=== PATIENT | female | born 1965 | race Caucasian/White ===

== ENCOUNTER 2018-08-24 16:18 | Outpatient (REF) | payer BC, SELFPAY ==
--- NOTE | 2018-08-24 15:30 | PAPFT_PTH ---
PATIENT: Gertrudis Chang LOC: [facility] U#:[id number] AGE/SX: 52/F ROOM: RE08/24/[address]: BRITTNEY Jensen : 1965 BED: DIS: 08/24/2018 SPEC #: [id number] RECD: 08/24/18 17:50 STATUS: KEHINDE REQ #: [id number] ALEX: 08/24/18 15:[address]: Eva Caballero DEPT: [facility] Cytology RECD BY: Ade Dave ENTERED: 08/24/18 17:51 SP TYPE: PAPFT OTHR DR: Edwina Cheney Tissues: 1 - CX/ENDOCX FOR PAP SMEARS Procedures: PAP THIN PREP/[facility] Screening Comments: [id number]
== END 2018-08-24 16:38 ==
LOC: LBN 16:18
PROVIDERS: Visit Provider Nurse Practitioner Family
DX: Z12.4 Encounter for screening for malignant neoplasm of cervix (principal)
CPT/HCPCS: 88142

== ENCOUNTER 2019-09-23 15:21 | Outpatient (REF) | payer BC, SELFPAY ==
--- NOTE | 2019-09-23 14:00 | PAPFT_PTH ---
PATIENT: Gertrudis Chang LOC: [facility] U#:[id number] AGE/SX: 54/F ROOM: RE09/23/[address]: BRITTNEY Jensen : 1965 BED: DIS: 09/23/2019 SPEC #: [id number] RECD: 09/26/19 12:37 STATUS: KEHINDE RERaghu #: [id number] ALEX: 09/23/19 14:[address]: Eva Caballero DEPT: [facility] Cytology RECD BY: Ade Dave ENTERED: 09/26/19 12:38 SP TYPE: PAPFT OTHR DR: Edwina Cheney Tissues: 1 - CX/ENDOCX FOR PAP SMEARS Procedures: PAP THIN PREP/[facility] Screening HPV DNA PROBE Comments: [id number]
== END 2019-09-23 15:41 ==
LOC: LBN 15:21
PROVIDERS: Visit Provider Nurse Practitioner Family
DX: Z12.4 Encounter for screening for malignant neoplasm of cervix (principal); Z11.51 Encounter for screening for human papillomavirus (HPV)
CPT/HCPCS: 88142; 87624

== ENCOUNTER 2019-10-12 02:08 | Outpatient (CLI) | payer BC, SELFPAY ==
--- NOTE | 2019-10-12 12:30 | DI.MAMMO_ITS ---
EXAM: MG MAMMO SCREENING CLINICAL HISTORY: screening TECHNIQUE: Mammograms were interpreted according to the usual protocol including computer analysis w [employer] CAD system, tomosynthesis and C-view imaging. COMPARISON: FINDINGS: The breasts are of moderate density with fairly symmetrical distribution of fibroglandular tissue. N o dominant mass or clumped microcalcification is identified in either breast. Current examination is compared with previous examinations including June 2017 and there has been no gross interval mahsa nge in appearance incomparison with the previous studies. IMPRESSION: No specific evidence of malignancy at this time. Routine screening examinations are suggested at yea rly intervals in this age group according to the ACS ACR guidelines. BI-RADS Cat 1 - Negative: Breast Density - Category B - Scattered areas of fibroglandular density:
== END 2019-10-12 02:28 ==
PROVIDERS: Visit Provider Nurse Practitioner Family
DX: Z12.31 Encounter for screening mammogram for malignant neoplasm of breast (principal)
CPT/HCPCS: 77063; 77067

== ENCOUNTER 2020-09-24 11:29 | Outpatient (REF) | payer BC, SELFPAY ==
--- NOTE | 2020-09-24 10:45 | PAPFT_PTH ---
PATIENT: Gertrudis Chang LOC: [facility] U#:[id number] AGE/SX: 55/F ROOM: RE09/24/[address]: BRITTNEY eJnsen : 1965 BED: DIS: 09/24/2020 SPEC #: [id number] RECD: 09/24/20 12:55 STATUS: KEHINDE REQ #: [id number] ALEX: 09/24/20 10:[address]: Eva Caballero DEPT: [facility] Cytology RECD BY: Ade Dave ENTERED: 09/24/20 12:55 SP TYPE: PAPFT OTHR DR: Edwina Cheney Tissues: 1 - CX/ENDOCX FOR PAP SMEARS Procedures: PAP THIN PREP/U[facility] Screening HPV DNA PROBE Comments: [id number]
== END 2020-09-24 11:30 | disposition home or self-care (01) ==
LOC: LBN 11:29
PROVIDERS: Visit Provider Nurse Practitioner Family
DX: Z12.4 Encounter for screening for malignant neoplasm of cervix (principal); Z87.410 Personal history of cervical dysplasia; Z11.51 Encounter for screening for human papillomavirus (HPV)
CPT/HCPCS: 88142; 87624

== ENCOUNTER 2021-09-30 11:55 | Outpatient (REF) | payer BC, SELFPAY ==
--- NOTE | 2021-09-30 10:00 | PAPFT_PTH ---
PATIENT: Gertrudis Chang LOC: [facility] U#:[id number] AGE/SX: 56/F ROOM: RE09/30/[address]: BRITTNEY Jensen : 1965 BED: DIS: 09/30/2021 SPEC #: [id number] RECD: 09/30/21 13:00 STATUS: KEHINDE RERaghu #: [id number] ALEX: 09/30/21 10:[address]: Eva Caballero DEPT: [facility] Cytology RECD BY: Ade Dave ENTERED: 09/30/21 13:00 SP TYPE: PAPFT OTHR DR: Edwina Cheney Tissues: 1 - CX/ENDOCX FOR PAP SMEARS Procedures: PAP THIN PREP/[facility] Screening HPV DNA PROBE Comments: [id number]
== END 2021-09-30 11:56 | disposition home or self-care (01) ==
LOC: LBN 11:55
PROVIDERS: Visit Provider Nurse Practitioner Family
DX: Z12.4 Encounter for screening for malignant neoplasm of cervix (principal); Z11.51 Encounter for screening for human papillomavirus (HPV)
CPT/HCPCS: 88142; 87624

== ENCOUNTER → 2021-11-06 01:00 | Outpatient (CLI) | payer BC, SELFPAY ==
--- NOTE | 2021-11-06 11:15 | DI.MAMMO_ITS ---
Exam(s) MAMMO SCREENING EXAM: MAMMO SCREENING CLINICAL HISTORY: screening TECHNIQUE: Mammograms were interpreted according to the usual protocol including computer analysis w [employer] CAD system, tomosynthesis and C-view imaging. COMPARISON: FINDINGS: The breasts are heterogeneously dense. No dominant mass or clumped microcalcification is identified in either breast. The current examination is compared with previous examinations including June 2017 and October 2019 and is question of an interval increase in prominence of a focal area of asymmetri c density projected in the central posterior portion of the left breast seen most clearly on CC views . Additional mammographic views are requested to include CC spot compression views of the left breas t. IMPRESSION: Additional mammographic views of the left breast requested as described above. Breast ultrasound may be indicated as well depending on the results of the additional mammographic views. BI-RADS Category 0 - Assessment Incomplete: Need additional imaging evaluation Breast Density - Category C - Heterogeneously dense
== END ==
PROVIDERS: Visit Provider Nurse Practitioner Family
DX: Z12.31 Encounter for screening mammogram for malignant neoplasm of breast (principal); R92.8 Other abnormal and inconclusive findings on diagnostic imaging of breast
CPT/HCPCS: 77063; 77067

== ENCOUNTER → 2021-11-14 01:25 | Outpatient (CLI) | payer BC, SELFPAY ==
--- NOTE | 2021-11-14 | DI.US_ITS ---
Exam(s) MG MAMMO SCREEN CALL BACK UNI US BREAST LT COMPLETE EXAM: MAMMO SCREEN CALL BACK UNI -LEFT AND COMPLETE LEFT BREAST ULTRASOUND CLINICAL HISTORY: F/U ABNL MAMMO, ? INTERVAL INC FOCAL AREA ASYMMETRIC DENSITY LT BREAST. TECHNIQUE: Unilateral LEFT spot mammographic images obtained with 3D tomosynthesisand utilizing comp uter aided detection (CAD). . Complete LEFT breast Ultrasound was also performed, including all 4 quadrants, the retroareolar regio n, and the ipsilateral axilla. COMPARISON: Prior mammograms were reviewed. This additional imaging was performed due to findings described on the recent screening mammogram of 11/06/2021. FINDINGS: DIAGNOSTIC LEFT BREAST MAMMOGRAM: Additional mammographic views performed todayrender this area less concerning and similar in appearan ce to prior mammograms.. COMPLETE LEFT BREAST ULTRASOUND: Ultrasound performed today reveals no solid or significant cystic lesions in all 4 quadrants.. This implies that the finding is probably a benign intramammary lymph node. There is no adenopathy in the ipsilateral left axilla IMPRESSION: Benign left breast findings as described above. Nodular density described is most probably benign ly mph node. Appropriate follow-up is to keep this patient on the yearly mammogram schedule, with earlier imaging if a self detected breast change is noted. The patient was informed of these findings and recommendations prior to leaving the department today. BI-RADS Category 2 - Benign Findings Breast Density - Category B - Scattered areas of fibroglandular density Breast density Category C or D implies that the patient has dense breast tissue. Dense breast tissue can make it harder to find cancer on a mammogram. Dense breast tissue is also associated with an incr eased risk of breast cancer. This information about the result of the mammogram report was provided to the patient to raise their awareness. Use this report when you speak with the patient about their risks for breast cancer, which includes their family history. At that time, you may recommend additional screening tests (Ultrasoun d or MRI) as these tests may add significant information. A negative radiographic report should not delay biopsy if a dominant or clinically suspicious mass is present. Up to ten percent of cancers are not identified on mammography. A negative report may reinforce clinical impression. Adenosis and dense breasts may obscure an underlying neoplasm. False positive reports average 6 to 10%. Patient will receive a letter notifying them of these results.
== END ==
PROVIDERS: Visit Provider Nurse Practitioner Family
DX: Z12.31 Encounter for screening mammogram for malignant neoplasm of breast (principal); R92.8 Other abnormal and inconclusive findings on diagnostic imaging of breast; N60.82 Other benign mammary dysplasias of left breast
CPT/HCPCS: 76642; 77063; 77067